=== PATIENT | male | born 1980 | race African-American/Black ===

== ENCOUNTER 2021-10-10 08:18 | Emergency (ER) | payer SELFPAY ==
[~2021-10-10] VITALS: Ht 167.6 cm; Wt 87.3 kg
[2021-10-10 09:08] VITALS: BP 133/77
[2021-10-10] MEDS ORDERED: DOCU-385 PO (09:13)
[2021-10-10] MEDS ORDERED: ANUSHCS PR (09:13)
== END 2021-10-10 09:28 | disposition home or self-care (01) ==
LOC: EMS 08:18
DX: K64.4 Residual hemorrhoidal skin tags (principal)
CPT/HCPCS: 99282; Z7502

== ENCOUNTER 2024-08-01 12:29 | Emergency (ER) | payer OTHER ==
[~2024-08-01] VITALS: Ht 167.6 cm; Wt 82.0 kg
[~2024-08-01 12:29] MED LIST: ANUSHCS PR; DOCU-385 PO
[2024-08-01 12:40] VITALS: TEMP 99.7
[2024-08-01 13:06] LABS: COVID AG,FIA SOURCE NASAL SWAB
[2024-08-01 13:29] LABS: SARS-COV2 (COVID) ANTIGEN,FIA Negative (Negative)
[2024-08-01 13:30] LABS: INFLUENZA TYPE A NEGATIVE FOR TYPE A (NEGATIVE); INFLUENZA TYPE B NEGATIVE FOR TYPE B (NEGATIVE)
[2024-08-01] MEDS ORDERED: BENZ-227 PO (14:15)
[2024-08-01] MEDS ORDERED: AMOX-457 PO (14:15)
[2024-08-01] MEDS: AMOX TR/POT CLAV 875 MG/125 MG TABLET PO ONE (14:34)
[2024-08-01] MEDS: BENZONATATE 100 MG CAPSULE PO ONE (14:34)
[2024-08-01 14:40] VITALS: BP 117/67; PULSE 86; RESP 18; O2SAT 98
== END 2024-08-01 14:47 | disposition home or self-care (01) ==
LOC: EMS 12:29
DX: J32.9 Chronic sinusitis, unspecified (principal); Z20.822 Contact with and (suspected) exposure to COVID-19
CPT/HCPCS: 87804; 99283